=== PATIENT | male | born 1980 | race Caucasian/White ===

== ENCOUNTER 2016-10-30 19:44 | Emergency (ER) | payer OTHER ==
[~2016-10-30] VITALS: Ht 165.1 cm; Wt 108.9 kg
--- NOTE | ~2016-10-30 | CR94 ---
[facility] A Service of [facility] RADIOLOGY TEXT RESULTS PATIENT: ROSY GUADARRAMA LOCATION: [facility] : 84 UNIT #: [id number] AGE: [address]: Patricia Espinosa APRN SEX: M ORDER DR: [id number] [facility] [address] [facility]. [place], [place] [address] [id number] E MR#: [id number] Acc #: [id number] NAME: ROSY GUADARRAMA. : 1980 SEX: M STUDY DATE/TIME: 10/30/2016 21:38 UNIT: [facility] ROOM: STUDY DESCRIPTION: CR Elbow Min 3 Views Rt Attending Physician: Patricia Espinosa A.P.R.N. Ordering Physician: Patricia Espinosa A.P.R.N. [facility]AG[facility] REPORT This report is preliminary unless electronic signature is present EXAM Right elbow series, dated 10/30/2016. COMPARISON None. HISTORY Medial right elbow pain for 3 days. FINDINGS Three views of the right elbow were obtained. AP and lateral examination of the elbow shows satisfactory articulation of the humerus with the proximal radius and ulna. There is no identifiable fracture, dislocation, joint effusion, or radiopaque foreign body in the soft tissues. IMPRESSION Normal right elbow. Dictated by... Ike Griffith M.D. THIS IS AN ELECTRONICALLY VERIFIED REPORT Ike Griffith M.D. at 11/06/2016 6:59 AM CPR/jt TD: 10/30/2016 23:33 JOB #: [id number] [facility] A Service [facility] RADIOLOGY TEXT RESULTS PATIENT: ROSY GUADARRAMA LOCATION: [facility] : 84 UNIT #: [id number] AGE: [address]: Patricia Espinosa APRN SEX: M ORDER DR: MEDICAL IMAGING REPORT Page 1 of 1 COPY
[~2016-10-30 19:44] MED LIST: ALBUTEROL17 GM INH; BACTRIM DS TABL1 TA1 PO; INDOCIN50 MG RC
== END 2016-10-30 22:36 | disposition home or self-care (01) ==
LOC: CFTX 19:44 → CED 19:44 → CFTX 21:13
DX: S46.811A Strain of other muscles, fascia and tendons at shoulder and upper arm level, right arm, initial encounter (principal); J45.909 Unspecified asthma, uncomplicated; F90.9 Attention-deficit hyperactivity disorder, unspecified type; W01.0XXA Fall on same level from slipping, tripping and stumbling without subsequent striking against object, initial encounter; Y92.009 Unspecified place in unspecified non-institutional (private) residence as the place of occurrence of the external cause
CPT/HCPCS: 29260; 73080; 99283